=== PATIENT | female | born 1995 | race Hispanic/Latino ===

== ENCOUNTER 2018-03-31 09:28 | Inpatient (IN) | payer BC ==
[2018-03-31 11:58] VITALS: BMI 30.2
[2018-03-31 12:24] LABS: HEMOGLOBIN 13.2 g/dL (12.0-16.0); MEAN CORPUSCULAR HEMOGLOBIN 28.2 pg (27.0-31.0); MEAN CORPUSCULAR HGB CONC 32.4 g/dL (33.0-37.0); RBC 4.68 Mil/uL (3.80-5.20); RED CELL DISTRIBUTION WIDTH 14.6 % (11.5-14.5); WHITE BLOOD COUNT 14.1 K/uL (4.8-10.8)
[2018-03-31 12:33] LABS: ALB/GLOB RATIO 1.1 (1.0-2.1); ALBUMIN 3.7 g/dL (3.5-5.0); ALT/SGPT 15 U/L (9-52); AST/SGOT 22 U/L (14-36); BLOOD UREA NITROGEN 6 mg/dl (7-17); CALCIUM 9.7 mg/dL (8.4-10.2); GFR NON-AFRICAN AMERICAN > 60
[2018-03-31 13:24] LABS: SQUAMOUS EPITHIAL 8 /hpf (0-5); URINE BACTERIA RARE (<OCC); URINE BILIRUBIN NEGATIVE (NEGATIVE); URINE BLOOD NEGATIVE (NEGATIVE); URINE CLARITY SLIGHTY-CLOUDY (Clear); URINE COLOR YELLOW (YELLOW); URINE GLUCOSE (UA) NEG (NEGATIVE); URINE LEUKOCYTE ESTERASE SMALL Leu/uL (Negative); URINE PROTEIN NEGATIVE (NEGATIVE); URINE UROBILINOGEN 0.2-1.0 mg/dL (0.2-1.0)
[2018-03-31] MEDS ORDERED: Oxytocin 30 UNIT 30 UNITS/500 ML BAG IV ONE (16:52)
[2018-03-31] MEDS ORDERED: Bupivacaine HCl 0.5% PF (30 ml) Inj ONE (21:17)
[2018-03-31] MEDS ORDERED: Fentanyl/Bupivacaine HCl 250 ML EPI ONE (21:44)
--- NOTE | 2018-03-31 22:07 | OBPN ---
Datetime: 03/31/2018 13:05 IP Progress Impression: Normal progression of labor IP Progress Plan: Continue present management FHR - Baseline A Provider: 120 Gestation - Est Wks by US: 40.3 IP Progress Note Comment: Patient doing well pain adequately controlled patient reports good m ovement no vaginal bleeding or leakage of fluid heart rate reactive toco uterine contractions every 2-3 minutes Sterile vaginal exam patient 3-4 cm 90% -2 Latent labor Adequate pelvis Vertex presentation Estimated weight 7-1/2 pounds Anticipate normal vaginal delivery Vital Signs Provider: Reviewed Vital Signs Provider Details: BP remains elevated NICHD Accel Fetus A IP Provider: [id number] NICHD Variability Prov Fetus A: Moderate 6-25bpm NICHD Decel Fetus A IP Provider: None Datetime: 03/31/2018 10:20 Contraction Comments Provider: Q5-8 min Presentation-Admit: Vertex FHR Category Provider Fetus A: Category I Dilatation, Provider: 2 Effacement, Provider: 80 Station, Provider: -1
[2018-04-01] MEDS ORDERED: Lactated Ringer's 2,000 ML IV SCH (01:00)
[2018-04-01] MEDS: Lactated Ringer's 1,000 ML IV SCH ×2 (05:00→13:00)
[2018-04-01] MEDS ORDERED: Oxytocin 30 UNIT 30 UNITS/500 ML BAG IV ONE (09:13)
[2018-04-01] MEDS ORDERED: OXYTOCIN/0.9 % NS 20 UNIT/1,000 ML BAG IV SCH (09:15)
[2018-04-01] MEDS ORDERED: Bupivacaine HCl 0.5% PF (30 ml) Inj ONE ×2 (15:17→18:07)
[2018-04-01] MEDS ORDERED: ceFAZolin 2 GM in Sodium Chloride 0.9% 100 ML IVPB ONE (17:51)
--- NOTE | 2018-04-01 17:57 | OBPN ---
Datetime: 04/01/2018 17:52 IP Progress Impression: Arrest of dilatation/descent IP Informed Consent Obtain: Section Delivery; Risks, Benefits and Alternatives Discussed IP Procedures: Sterile Vag Exam IP Progress Plan: Deliver- Section Contraction Comments Provider: q2-3min FHR - Baseline A Provider: 120s IP Progress Note Comment: No labor progress. Pt with prolonged variable deceleration with good adam very. Plan for C/S delivery due to arrest of dilation. Discussed the R/B/A of surgery with patient and patient consented for C/S. All patient questions answered. Vital Signs Provider: Reviewed; Within Normal Limits NICHD Accel Fetus A IP Provider: [id number] FHR Category Provider Fetus A: Category II NICHD Variability Prov Fetus A: Moderate 6-25bpm Dilatation, Provider: 5 Effacement, Provider: 100 Station, Provider: 0 NICHD Decel Fetus A IP Provider: Variable
[2018-04-01] MEDS ORDERED: Lactated Ringer's 1,000 ML IV SCH (18:00)
[2018-04-01] MEDS ORDERED: Morphine 1 mg/ml preservative-free Inj(Duramorph) ONE (18:07)
[2018-04-01] MEDS ORDERED: Propofol 10 mg/ml Inj (20 ML) ONE (18:51)
[2018-04-01] MEDS ORDERED: DiphenhydrAMINE 50 mg/ml Inj IVP PRN ×2 (19:18→20:58)
[2018-04-01] MEDS ORDERED: Oxycodone/Acetaminophen 5/325 mg Tab PO PRN ×3 (19:19→20:58)
[2018-04-01 22:16] LABS: BASO # 0.1 K/uL (0.0-0.2); BASO % 0.6 % (0.0-2.0); EOS % 0.1 % (0.0-4.0); HEMOGLOBIN 7.6 g/dL (12.0-16.0); LYMPH # 1.6 K/uL (1.0-4.3); LYMPH % 14.9 % (20.0-40.0); MEAN CELL VOLUME 87.5 fl (81.0-99.0); MEAN CORPUSCULAR HEMOGLOBIN 28.6 pg (27.0-31.0); MEAN CORPUSCULAR HGB CONC 32.7 g/dL (33.0-37.0); MEAN PLATELET VOLUME 7.4 fl (7.2-11.7); MONO # 0.5 K/uL (0.0-0.8); MONO % 5.1 % (0.0-10.0); NEUT # 8.6 K/uL (1.8-7.0); NEUT % 79.3 % (50.0-75.0); RBC 2.67 Mil/uL (3.80-5.20); RED CELL DISTRIBUTION WIDTH 14.4 % (11.5-14.5); WHITE BLOOD COUNT 10.8 K/uL (4.8-10.8)
[2018-04-01 22:34] LABS: INR 1.1
[2018-04-01 22:36] LABS: PARTIAL THROMBOPLASTIN TIME 30.7 Seconds (25.6-37.1); SQUAMOUS EPITHIAL < 1 /hpf (0-5); URINE BILIRUBIN NEGATIVE (NEGATIVE); URINE BLOOD MODERATE (NEGATIVE); URINE CLARITY SLIGHTY-CLOUDY (Clear); URINE COLOR YELLOW (YELLOW); URINE GLUCOSE (UA) NEG (NEGATIVE); URINE LEUKOCYTE ESTERASE NEG Leu/uL (Negative); URINE PROTEIN NEGATIVE (NEGATIVE); URINE UROBILINOGEN 0.2-1.0 mg/dL (0.2-1.0)
[2018-04-01 22:41] LABS: ALB/GLOB RATIO 0.8 (1.0-2.1); ALBUMIN 1.9 g/dL (3.5-5.0); ALT/SGPT 18 U/L (9-52); AST/SGOT 17 U/L (14-36); BLOOD UREA NITROGEN 5 mg/dl (7-17); CALCIUM 6.7 mg/dL (8.4-10.2); GFR NON-AFRICAN AMERICAN > 60; URIC ACID 3.9 mg/Dl (2.2-7.5)
[2018-04-01] MEDS: Oxycodone/Acetaminophen 5/325 mg Tab PO PRN (23:03)
[2018-04-02] MEDS: Oxycodone/Acetaminophen 5/325 mg Tab PO PRN (05:11)
[2018-04-02 06:59] LABS: HEMOGLOBIN 10.5 g/dL (12.0-16.0); MEAN CELL VOLUME 87.2 fl (81.0-99.0); MEAN CORPUSCULAR HEMOGLOBIN 28.5 pg (27.0-31.0); MEAN CORPUSCULAR HGB CONC 32.7 g/dL (33.0-37.0); RBC 3.68 Mil/uL (3.80-5.20); RED CELL DISTRIBUTION WIDTH 14.5 % (11.5-14.5); WHITE BLOOD COUNT 13.4 K/uL (4.8-10.8)
[2018-04-02] MEDS ORDERED: Multivitamin With Minerals Tab PO SCH (09:00)
[2018-04-02] MEDS: Multivitamin With Minerals Tab PO SCH (09:20)
--- NOTE | 2018-04-02 13:08 | OBDS ---
DELIVERY PERSONNEL Delivery Doctor: Silvestre Mena MD [employer] French Teacher: Laurie Champagne RN Anesthesiologist: Moni Resident: Bhargav MATERNAL INFORMATION Delivery Anesthesia: Epidural Medications in Delivery: Pitocin Estimated Blood Loss (ml): 800 Placenta Cultured: No Maternal Complications: None Provider Comments: Primary low flap transverse section Via Pfannenstiel incision. Patient delivered viable infant with Apgars of 9 and 9 at 1 and 5 minutes respectively. Normal uterus, elisabet l tubes and ovaries bilaterally. Estimated blood loss 800 cc Fluids 1200 cc lactated Ringer's Urine output 300 cc of clear urine No complications Patient tolerated procedure well Refer to dictation LABOR SUMMARY EDC: 03/28/2018 00:00 No. Babies in Womb: 1 Labor Anesthesia: Epidural LABOR INFORMATION Reason for Induction: Gest. HTN/PreEclampsia/Eclampsia Onset of Labor: 03/31/2018 22:03 Oxytocin: Augmentation Group B Beta Strep: Negative Steroids Given: None Reason Steroids Not Administered: Not Applicable MEMBRANES Membranes Rupture Method: Artificial Rupture of Membranes: 04/01/2018 08:35 Length of Rupture (hrs): 10.02 Amniotic Fluid Color: Light Meconium Amniotic Fluid Amount: Small Amniotic Fluid Odor: Normal STAGES OF LABOR Stage 3 hrs: -191 Stage 3 min: -56 Total Time in Labor hrs: -171 Total Time in Labor min: -23 VAGINAL DELIVERY Episiotomy: None Laceration Extension: First Degree Laceration Type: Vaginal CSECTION DELIVERY Primary Indication: Arrest of dilitation CSection Urgency: Non Elective CSection Incidence: Primary Labor: Labor Elective: Nonelective CSection Incision: Lower Uterine Transverse BABY A INFORMATION Delivery Date/Time: 04/01/2018 18:36 Method of Delivery: Born in Route : No : N/A Forceps: N/A Vacuum Extraction: N/A Shoulder Dystocia : No SHOULDER DYSTOCIA BABY A Infant Delivery Date/Time: 04/01/2018 18:36 PRESENTATION/POSITION BABY A Presentation: Cephalic PLACENTA INFORMATION BABY A Placenta Delivery Time : 03/24/2018 18:40 Placenta Method of Delivery: Expressed Placenta Status: Delivered SCORES BABY A Heart Rate 1 min: >100 bpm Resp Effort 1 min: Good Cry Reflex Irritability 1 min: Cough or Sneeze or Pulls Away Muscle Tone 1 min: Active Motion Color 1 min: Body Kelley, Extremities Blue Resuscitation Effort 1 min: Tactile Stimulation SCORE 1 MIN: 9 Heart Rate 5 min: >100 bpm Resp Effort 5 min: Good Cry Reflex Irritability 5 min: Cough or Sneeze or Pulls Away Muscle Tone 5 min: Active Motion Color 5 min: Body Kelley, Extremities Blue Resuscitation Effort 5 min: N/A SCORE 5 MIN: 9 INFORMATION BABY A Gestational Age at Delivery: 40.4 Gestational Status: Term Outcome : Liveborn Condition : Stable Infant Sex: Male IDENTIFICATION/MEDS BABY A ID Band Number: [id number] ID Band Location: Left Leg; Left Arm WEIGHT/LENGTH BABY A Infant Birthweight (gms): 3820 Weight (lb): 8 Weight (oz): 7 CORD INFORMATION BABY A No. Cord Vessels: 3 Nuchal Cord : N/A Cord Blood Taken: Yes Suction: None ASSESSMENT BABY A Complications: Multiple Late Decels; Meconium Physical Findings at Delivery: Caput Succedaneum Infant Respirations: Appears Normal Outside Sales Representative/ALS Called : No Infant Care By: Theodora / Dr Taveras Transferred To: Nursery
--- NOTE | 2018-04-02 13:13 | OBDS ---
DELIVERY PERSONNEL Delivery Doctor: Silvestre Mena MD Cobol Programmer: Laurie Champagne RN Anesthesiologist: Moni Resident: Bhargav MATERNAL INFORMATION Delivery Anesthesia: Epidural Medications in Delivery: Pitocin Estimated Blood Loss (ml): 800 Placenta Cultured: No Maternal Complications: None Provider Comments: Primary low flap transverse section Via Pfannenstiel incision. Patient delivered viable infant with Apgars of 9 and 9 at 1 and 5 minutes respectively. Normal uterus, elisabet l tubes and ovaries bilaterally. Estimated blood loss 800 cc Fluids 1200 cc lactated Ringer's Urine output 300 cc of clear urine No complications Patient tolerated procedure well Refer to dictation LABOR SUMMARY EDC: 03/28/2018 00:00 No. Babies in Womb: 1 Labor Anesthesia: Epidural LABOR INFORMATION Reason for Induction: Gest. HTN/PreEclampsia/Eclampsia Onset of Labor: 03/31/2018 22:03 Oxytocin: Augmentation Group B Beta Strep: Negative Steroids Given: None Reason Steroids Not Administered: Not Applicable MEMBRANES Membranes Rupture Method: Artificial Rupture of Membranes: 04/01/2018 08:35 Length of Rupture (hrs): 10.02 Amniotic Fluid Color: Light Meconium Amniotic Fluid Amount: Small Amniotic Fluid Odor: Normal STAGES OF LABOR Stage 3 hrs: -191 Stage 3 min: -56 Total Time in Labor hrs: -171 Total Time in Labor min: -23 VAGINAL DELIVERY Episiotomy: None Laceration Extension: First Degree Laceration Type: Vaginal CSECTION DELIVERY Primary Indication: Arrest of dilitation CSection Urgency: Non Elective CSection Incidence: Primary Labor: Labor Elective: Nonelective CSection Incision: Lower Uterine Transverse BABY A INFORMATION Delivery Date/Time: 04/01/2018 18:36 Method of Delivery: Born in Route : No : N/A Forceps: N/A Vacuum Extraction: N/A Shoulder Dystocia : No SHOULDER DYSTOCIA BABY A Infant Delivery Date/Time: 04/01/2018 18:36 PRESENTATION/POSITION BABY A Presentation: Cephalic Presentation: Cephalic PLACENTA INFORMATION BABY A Placenta Delivery Time : 03/24/2018 18:40 Placenta Method of Delivery: Expressed Placenta Status: Delivered SCORES BABY A Heart Rate 1 min: >100 bpm Resp Effort 1 min: Good Cry Reflex Irritability 1 min: Cough or Sneeze or Pulls Away Muscle Tone 1 min: Active Motion Color 1 min: Body [place], Extremities Blue Resuscitation Effort 1 min: Tactile Stimulation SCORE 1 MIN: 9 Heart Rate 5 min: >100 bpm Resp Effort 5 min: Good Cry Reflex Irritability 5 min: Cough or Sneeze or Pulls Away Muscle Tone 5 min: Active Motion Color 5 min: Body [place], Extremities Blue Resuscitation Effort 5 min: N/A SCORE 5 MIN: 9 INFANT INFORMATION BABY A Gestational Age at Delivery: 40.4 Gestational Status: Term Outcome : Liveborn Infant Condition : Stable Sex: Male IDENTIFICATION/MEDS BABY A ID Band Number: [id number] ID Band Location: Left Leg; Left Arm WEIGHT/LENGTH BABY A Infant Birthweight (gms): 3820 Infant Weight (lb): 8 Weight (oz): 7 CORD INFORMATION BABY A No. Cord Vessels: 3 Nuchal Cord : N/A Cord Blood Taken: Yes Suction: None ASSESSMENT BABY A Infant Complications: Multiple Late Decels; Meconium Physical Findings at Delivery: Caput Succedaneum Infant Respirations: Appears Normal Etiquette Coach/ALS Called : No Infant Care By: Theodora / Dr Taveras Transferred To: [facility]
--- NOTE | 2018-04-02 13:27 | OBPPN ---
Datetime: 04/02/2018 13:25 PP Pain Prov: Within normal limits PP Nausea Prov: Denies PP Flatus Prov: Yes PP BM Prov: No PP Breasts Prov: Normal PP Heart Prov: Normal PP Lungs Prov: Normal PP Abdomen/Uterus Prov: Normal PP Lochia Prov: Normal PP Vulva/Perineum Prov: Normal PP CVA Tenderness Prov: Normal PP Extremities Prov: Normal PP C/S Incision Prov: Normal PP Progress Prov: Normal PP Comments Phys Exam Prov: Abdomen soft, nontender, nondistended Incision clean, dry, intact Uterus firm, below umbilicus No deep calf tenderness bilaterally PP Impression Prov: Normal progression PP Plan Prov: Continue present management PP Progress Note Prov: Postop day 1 status post primary , patient recovering well Pain control Out of bed, ambulate Elias out, void check Postop CBC Regular diet IP PP Procedures: None Vital Signs Provider PP: Reviewed; Within Normal Limits
--- NOTE | 2018-04-03 00:54 | OP ---
PROCEDURE DATE: 04/01/2018 PREOPERATIVE DIAGNOSIS: Arrest of dilatation in active labor. POSTOPERATIVE DIAGNOSIS: Arrest of dilatation in active labor. OPERATION PERFORMED: Primary low flap transverse section via Pfannenstiel incision. SURGEON: Carloz Mena MD FIELD SERVICE POULTRY TECHNICIAN: Dr. Lo. ANESTHESIOLOGIST: Dr. Medrano. ANESTHESIA: Epidural. OPERATIVE FINDINGS: Viable with 's of 9 and 9 at 1 and 5 minutes respectively, normal uterus. Normal tubes and ovaries bilaterally. ESTIMATED BLOOD LOSS: 800 mL. FLUIDS: 1200 mL lactate Ringer's. URINE OUTPUT: 300 mL of clear urine at the end of the procedure. COMPLICATIONS: No complications. DESCRIPTION OF PROCEDURE: The patient was taken to the operating room where epidural anesthesia was found to be adequate. The patient was prepped and draped in a normal sterile fashion in the dorsal supine position with a leftward tilt. A Pfannenstiel skin incision was made with the scalpel. This was carried down through to the underlying layer of fascia with the scalpel. A midline defect was made in the fascial layer with the scalpel. The fascial incision was then extended bilaterally with curved Zimmer scissors. The rectus muscles were from the fascia both bluntly and sharply with curved Zimmer scissors. The rectus muscles were at the midline. The peritoneum was then identified, tented up with Babs clamps x2, and entered sharply with Metzenbaum scissors. This peritoneal incision was then extended superiorly and inferiorly with good visualization of the urinary bladder. Bladder blade was inserted into the abdomen. The vesicouterine peritoneum was then identified, tented up with Babs clamps x2, and entered sharply with Metzenbaum scissors. This peritoneal incision was then extended bilaterally with Metzenbaum scissors. The bladder flap was created digitally. The Lorraine retractor was placed over the urinary bladder. The uterus was incised with the scalpel. The uterine incision was extended bilaterally bluntly. The 's head was delivered atraumatically. Nose and mouth were suctioned with bulb suction. The remainder of the infant was delivered without complication. The cord was clamped and cut. The infant was handed off to the waiting pediatricians. The cord gases were collected. The cord blood was collected. The placenta was removed manually. The uterus was cleared of all clots and debris. The uterine incision was repaired with 0 Vicryl in a running, locked fashion. The second layer of the same suture was used to imbricate the first to obtain excellent hemostasis. Re-inspection of the uterine incision proved excellent hemostasis. The abdomen and pelvis were irrigated with copious amounts of warm normal saline. Re-inspection of the uterine incision proved excellent hemostasis. All instruments were removed from the patient. The peritoneal layer was closed with a running stitch of 2-0 chromic. The rectus muscles were reapproximated at the midline with running stitch of 2-0 chromic. The fascial layer was closed with a running stitch of 0 Vicryl. Subcutaneous tissue was reapproximated with a running stitch of 3-0 plain. The skin was closed with a subcutaneous stitch of 3-0 Vicryl. The patient tolerated the procedure well. All sponge, lap count, and needle counts were correct x2. The patient was given 2 g of Ancef just prior to the beginning of the procedure. There were no complications. The patient was taken to the recovery room in awake and stable condition. Carloz Mena MD
--- NOTE | 2018-04-03 07:56 | OBPPN ---
Datetime: 04/03/2018 07:50 PP Pain Prov: Within normal limits PP Nausea Prov: Denies PP Flatus Prov: No PP BM Prov: No PP Abdomen/Uterus Prov: Normal PP Lochia Prov: Normal PP C/S Incision Prov: Normal PP Progress Prov: Normal PP Comments Phys Exam Prov: Incision intact w/ steri strips PP Impression Prov: Normal progression PP Plan Prov: Continue present management PP Progress Note Prov: POD 2 s/p c/s for arrest of dilation, doing well, breast and bottle feeding Continue current care Vital Signs Provider PP: Reviewed
[2018-04-03] MEDS: Multivitamin With Minerals Tab PO SCH (17:58)
[2018-04-04] MEDS: Multivitamin With Minerals Tab PO SCH (09:12)
--- NOTE | 2018-04-04 11:44 | OBDCSUM ---
Datetime: 04/04/2018 10:33 Discharged to, Provider: home Follow up at, Provider: OB Disch Instr Activity: Normal activity Disch Instr Diet: Regular Discharge Instructions, Provider: Routine instructions given Discharge Diagnosis, Provider: Term Delivered Discharge Time: 04/04/2018 12:00 Follow up in weeks, Provider: 1 wk, 6 wks Disch Referrals: None Contraception discussed, Prov: Yes
--- NOTE | 2018-04-04 11:45 | OBPPN ---
Datetime: 04/04/2018 11:37 PP Pain Prov: Within normal limits PP Nausea Prov: Denies PP Flatus Prov: Yes PP Breasts Prov: Normal PP Heart Prov: Normal PP Lungs Prov: Normal PP Abdomen/Uterus Prov: Normal PP Lochia Prov: Normal PP Vulva/Perineum Prov: Normal PP CVA Tenderness Prov: Normal PP Extremities Prov: Normal PP Comments Phys Exam Prov: Fundus firm under umbilicus Incision clean/dry/intact PP Impression Prov: Normal progression PP Plan Prov: Continue present management; Discharge PP Progress Note Prov: Patient denies CP, no SOB, no N/V, tolerating PO diet, ambulating/voiding wel l, mild lochia, abodminal pain tolerable with meds, +flatus, +BM A/P POD #3 1. discharge home 2. discharge instructions reviewed IP PP Procedures: None Vital Signs Provider PP: Reviewed; Within Normal Limits
[2018-04-04 18:22] VITALS: BP 124/80; PULSE 65; RESP 20; TEMP 98.1; O2SAT 99
== END 2018-04-04 12:55 | disposition home or self-care (01) | DRG 788 ==
LOC: H.EROB2 09:28 → H.L&D 12:56 → H.OB/GYN 04-01 23:09
PROVIDERS: ADMIT Obstetrics & Gynecology Gynecology; ATTEND Obstetrics & Gynecology Gynecology
PROC: 4A1HXCZ Monitoring of Products of Conception, Cardiac Rate, External Approach (ICD-10-PCS; 2018-03-31)
PROC: 10D00Z1 Extraction of Products of Conception, Low, Open Approach (ICD-10-PCS; principal; 2018-04-01)
DX: O48.0 Post-term pregnancy (principal); O76 Abnormality in fetal heart rate and rhythm complicating labor and delivery; O62.0 Primary inadequate contractions; O77.0 Labor and delivery complicated by meconium in amniotic fluid; Z3A.40 40 weeks gestation of pregnancy; Z37.0 Single live birth